=== PATIENT | female | born 1970 | race Caucasian/White ===

== ENCOUNTER 2018-08-21 11:00 | Inpatient (IN) | payer BC ==
[~2018-08-21] VITALS: Ht 157.5 cm; Wt 81.2 kg
[2018-08-21 12:00] VITALS: BP 133/67
--- NOTE | 2018-08-21 13:20 | EKG ---
[facility] [address] [place] [address] Test Date: 2018-08-21 Test Time: 13:12:12 Pat Name: INO CARVALHO Department: Room: 104 1 Gender: F Public Health Nutritionist: MANNIE : 1970 Requested By: KASSIE VILLAREAL Order Number: [id number] Reading MD: Angel Mcgovern MD Measurements Intervals [place] Rate: 76 P: 52 DE: 152 QRS: -16 QRSD: 76 T: 21 QT: 366 QTc: 415 Interpretive Statements SINUS RHYTHM Electronically Signed On 08-23-2018 11:09:45 CDT by Angel Mcgovern MD
[2018-08-21 14:26] LABS: BASO # 0.1 x10^3/uL (0.0-0.2); BASO % 1 % (0-3); EOS # 0.1 x10^3/uL (0.0-0.7); EOS % 2 % (0-3); HEMATOCRIT 42.6 % (36.0-47.0); LYMPH # 1.8 x10^3/uL (1.0-4.8); LYMPH % 23 % (24-48); MEAN CORPUSCULAR HEMOGLOBIN 27 pg (25-35); MEAN CORPUSCULAR HGB CONC 33 g/dL (31-37); MEAN CORPUSCULAR VOLUME 81 fL (79-100); MONO # 0.5 x10^3/uL (0.0-1.1); MONO % 6 % (0-9); NEUT # 5.2 x10^3uL (1.8-7.7); NEUT % 68 % (31-73); PLATELET COUNT 214 x10^3/uL (140-400); RED BLOOD COUNT 5.24 x10^6/uL (3.50-5.40); RED CELL DISTRIBUTION WIDTH 14.7 % (11.5-14.5); WHITE BLOOD COUNT 7.6 x10^3/uL (4.0-11.0)
[2018-08-21 14:27] LABS: BILIRUBIN,URINE NEGATIVE (NEG); CLARITY,URINE CLEAR; COLOR,URINE YELLOW; NITRITE,URINE NEGATIVE (NEG); PH,URINE 7.5; PROTEIN,URINE NEGATIVE (NEG-TRACE); UROBILINOGEN,URINE 0.2 mg/dL (0.2 mg/dL)
[2018-08-21 14:31] LABS: AMPHETAMINE/METHAMPHETAMINE NEG (NEG); BARBITURATES NEG (NEG); BENZODIAZEPINES NEG (NEG); CANNABINOIDS NEG (NEG); COCAINE NEG (NEG); METHADONE NEG (NEG); OPIATES NEG (NEG); PHENCYCLIDINE NEG (NEG)
[2018-08-21 14:43] LABS: ALBUMIN 3.8 g/dL (3.4-5.0); ALBUMIN/GLOBULIN RATIO 1.1 (1.0-1.7); CALCIUM 9.5 mg/dL (8.5-10.1); CREATININE 0.7 mg/dL (0.6-1.0); GFR 90.1; POTASSIUM 3.9 mmol/L (3.5-5.1); TOTAL BILIRUBIN 0.6 mg/dL (0.2-1.0); TOTAL PROTEIN 7.4 g/dL (6.4-8.2)
[2018-08-21 14:49] LABS: BACTERIA,URINE 0 /HPF (0-FEW)
[2018-08-21 14:50] LABS: SQUAMOUS EPITHELIAL CELL,UR FEW /LPF; WBC,URINE OCC /HPF (0-4)
--- NOTE | 2018-08-21 15:23 | PDOC2 ---
CARDIAC CONSULT DATE OF CONSULT Date of Consult DATE: 08/21/18 TIME: 15:22 REASON FOR CONSULT Reason for Consult: Chest pain REFERRING PHYSICIAN Referring Physician: Appl SOURCE Source: Chart review, Patient HISTORY OF PRESENT ILLNESS HISTORY OF PRESENT ILLNESS This is a pleasant 47 yo female admitted for complains of chest pain and double vision. She came from her PCP's office and told her to come to ED. Reports that Palm Monday she had 30 minutes of double vision with some MAKI while at [employer]. his good Monday she had some blurred vision episode which again lasted for about 30 minutes. Reports that she had CP sharp to left chest without diaphoresis, palpitations lasting about 1 minute longest duration but also occurred x2 more but brief. No vertigo, facial droop, dysarthria. No recent falls, injury, MVA. No hx of VTE, CAD, arrhythmias. 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 No past hx of CVA or TIA. No recent infection. PAST MEDICAL HISTORY Cardiovascular: No pertinent hx Pulmonary: No pertinent hx CENTRAL NERVOUS SYSTEM: Other (No pertinent history) GI: No pertinent hx Heme/Onc: No pertinent hx Hepatobiliary: No pertinent hx Psych: No pertinent hx Musculoskeletal: Osteoarthritis Rheumatologic: No pertinent hx Infectious disease: No pertinent hx ENT: No pertinent hx Renal/: No pertinent hx Endocrine: No pertinent hx Dermatology: No pertinent hx PAST SURGICAL HISTORY Past Surgical History: Tubal Ligation, Other (polypectomy as a child) FAMILY HISTORY Family History: Coronary Artery Disease (premature with brother in his 40s. ) SOCIAL HISTORY Smoke: No ALCOHOL: none Drugs: None Lives: with Family ALLERGIES ALLERGIES: Coded Allergies: codeine (Verified Adverse Reaction, Intermediate, nausea, 08/21/18) ROS Review of System 14 point ROS evaluated with pertinent positives noted in HPI PHYSICAL EXAM General: Alert, Oriented X3, Cooperative, No acute distress HEENT: Atraumatic, Mucous membr. moist/pink Lungs: Clear to auscultation, Normal air movement Heart: Regular rate (SR), Normal S1, Normal S2, No murmurs Abdomen: Soft, No tenderness Extremities: No cyanosis, No edema Skin: No breakdown, No significant lesion Neuro: Normal speech, Sensation intact Psych/Mental Status: Mental status NL, Mood NL MUSCULOSKELETAL: Osteoarthritic changes both hands VITALS VITALS Vital Signs Date Time Temp Pulse Resp B/P (MAP) Pulse Ox O2 Delivery O2 Flow Rate FiO2 08/21/18 12:00 97.8 74 133/67 (89) 100 97.8 LABS Lab: Laboratory Tests Test 08/21/18 14:00 08/21/18 14:10 Urine Collection Type Unknown Urine Color Yellow Urine Clarity Clear Urine pH 7.5 Urine Specific [place] <=1.005 Urine Protein Negative mg/dL (NEG-TRACE) Urine Glucose (UA) Negative mg/dL (NEG) Urine Ketones (Stick) Trace mg/dL (NEG) Urine Blood Negative (NEG) Urine Nitrite Negative (NEG) Urine Bilirubin Negative (NEG) Urine Urobilinogen Dipstick 0.2 mg/dL (0.2 mg/dL) Urine Leukocyte Esterase Negative (NEG) Urine RBC 1-2 /HPF (0-2) Urine WBC Occ /HPF (0-4) Urine Squamous Epithelial Cells Few /LPF Urine Bacteria 0 /HPF (0-FEW) Urine Opiates Screen Neg (NEG) Urine Methadone Screen Neg (NEG) Urine Barbiturates Neg (NEG) Urine Phencyclidine Screen Neg (NEG) Urine Amphetamine/Methamphetamine Neg (NEG) Urine Benzodiazepines Screen Neg (NEG) Urine Cocaine Screen Neg (NEG) Urine Cannabinoids Screen Neg (NEG) Urine Ethyl Alcohol Neg (NEG) White Blood Count 7.6 x10^3/uL (4.0-11.0) Red Blood Count 5.24 x10^6/uL (3.50-5.40) Hemoglobin 14.0 g/dL (12.0-15.5) Hematocrit 42.6 % (36.0-47.0) Mean Corpuscular Volume 81 fL (79-100) Mean Corpuscular Hemoglobin 27 pg (25-35) Mean Corpuscular Hemoglobin Concent 33 g/dL (31-37) Red Cell Distribution Width 14.7 % (11.5-14.5) Platelet Count 214 x10^3/uL (140-400) Neutrophils (%) (Auto) 68 % (31-73) Lymphocytes (%) (Auto) 23 % (24-48) Monocytes (%) (Auto) 6 % (0-9) Eosinophils (%) (Auto) 2 % (0-3) Basophils (%) (Auto) 1 % (0-3) Neutrophils # (Auto) 5.2 x10^3uL (1.8-7.7) Lymphocytes # (Auto) 1.8 x10^3/uL (1.0-4.8) Monocytes # (Auto) 0.5 x10^3/uL (0.0-1.1) Eosinophils # (Auto) 0.1 x10^3/uL (0.0-0.7) Basophils # (Auto) 0.1 x10^3/uL (0.0-0.2) Sodium Level 143 mmol/L (136-145) Potassium Level 3.9 mmol/L (3.5-5.1) Chloride Level 104 mmol/L (98-107) Carbon Dioxide Level 28 mmol/L (21-32) Anion Gap 11 (6-14) Blood Urea Nitrogen 10 mg/dL (7-20) Creatinine 0.7 mg/dL (0.6-1.0) Estimated GFR (Cockcroft-Gault) 90.1 BUN/Creatinine Ratio 14 (6-20) Glucose Level 93 mg/dL (70-99) Calcium Level 9.5 mg/dL (8.5-10.1) Total Bilirubin 0.6 mg/dL (0.2-1.0) Aspartate Amino Transf (AST/SGOT) 18 U/L (15-37) Alanine Aminotransferase (ALT/SGPT) 26 U/L (14-59) Alkaline Phosphatase 87 U/L (46-116) Total Protein 7.4 g/dL (6.4-8.2) Albumin 3.8 g/dL (3.4-5.0) Albumin/Globulin Ratio 1.1 (1.0-1.7) Vitamin B12 Level 365 pg/mL (247-911) Thyroid Stimulating Hormone (TSH) 0.503 uIU/mL (0.358-3.74) ASSESSMENT/PLAN ASSESSMENT/PLAN Atypical chest pain Diplopia Recommendations TTE lipids, trend troponin, if unremarkable then will consider for outpt stress test given her significant family hx of premature CAD Neurology consult pending. Statin per lipid level. PETER BISHOP CLAIM AUDITOR Aug 21, 2018 15:23
[2018-08-21 15:36] LABS: CHOLESTEROL/HDL RATIO 5.3
[2018-08-21 16:00] VITALS: BP 109/61
--- NOTE | 2018-08-21 16:07 | PDOC2 ---
NEUROLOGY CONSULT Date of Admission Date of Admission DATE: 08/21/18 TIME: 15:58 Reason for Consult Reason for Consult: IMPRESSION: Recurrent blurred vision. Diplopia. Headache. Chest pain. HLD. Obesity. RECOMMENDATIONS/PLAN: Brain MRI w/wo contrast. Lab: see orders. Consulted Cardiology. Treat medical diseases. HISTORY OF THE PRESENT ILLNESS: This 47-y-old female patient with symptoms of chest pain was admitted for further evaluation. She Stated she had diplopia on 08/17/18 then again today. She also has headaches several times a week but now became more frequent with blurred vision. Denied sensory or motor deficits. PAST MEDICAL HISTORY: Please see above. PAST SURGERY HISTORY: No major surgery recently. ALLERGY: Coded Allergies: codeine (Verified Adverse Reaction, Intermediate, nausea, 08/21/18) MEDICATIONS: Refer to [facility] FAMILY HISTORY: Non contributory. SOCIAL HISTORY: Lives at home. Denies current smoking, drinking, and illicit drug use. REVIEW OF SYSTEMS: Constitutional: No malnutrition, weight loss, cachexia. Head: No traumatic brain or head injury. Skin: No edema, or rash. Ear: No infection. Eyes: No vision loss or color blindness. Nose: No bleeding or purulent discharges. Hearing: No hearing decrease. Neck: No injury. Breast: No history of cancer, masses,or discharges. Cardiac: HLD. Pulmonary: No COPD. GI: No GI ulcer, GI bleeding. Urinary/genital: UTI. Endocrinologic: Obesity. Skeletomuscular: No muscular atrophy. Neurological: see HP. Psychiatric: Denies drug use/abuse. Otherwise, not [id number] review of systems. PHYSICAL EXAMINATION: General appearance is in subacute distress. HEENT: Normocephalic and nontraumatic. Eyes, nose, ears, and throat are unremarkable. Neck is supple. No lymphadenopathy. No bruits are heard over the carotid artery. No crepitus. Cardiovascular: S1, S2, regular rate and rhythm. Pulmonary: Clear to auscultation bilaterally. Abdomen: Bowel sounds are positive. Abdomen is soft, nontender, and nondis tended. Extremities: No rash, lesions, or edema. No restriction of range of motion NEUROLOGICAL EXAMINATION: Alert Oriented to time, place and person. PERRL. EOMI. CN: no focal findings. Muscle tone: within normal. Muscle strength: 5 DTR: 2 Plantar reflex: Flexorl response bilaterally Gait: not examined in bed. Sensory exam: no abnormal findings. No cerebellar signs elicited. F-T-N test accurate. Current Medications Current Medications Current Medications Atorvastatin Calcium (Lipitor) 20 mg QHS PO ; Start 08/21/18 at 21:00; Status UNV Active Scripts Active Reported No Known Medications Prior To Admisstion (Info) Each 1 Each MC 1X Allergies Allergies: Allergies Coded Allergies Type Severity Reaction Last Updated Verified codeine Adverse Reaction Intermediate nausea 08/21/18 Yes ROS Review of System The patient denies any associated fevers, chills, headache, ear pain, rhinorrhea, sore throat, stiff neck, productive cough, chest pain, shortness of breath, back or flank pain, abdominal pain, nausea, vomiting, diarrhea, constipation, dysuria, rash, numbness, weakness, tingling, incontinence, difficulty ambulating, or diaphoresis. Physical Exam Physical Exam General: Well developed, well nourished, no acute distress, well appearing HEENT: Pupils equally round and reactive to light, EOMI, no discharge, normal conjunctiva Neck: Supple, no nuchal rigidity, no JVD, trachea midline, no tenderness Cardiac: RRR, no murmurs, no gallops, no rubs Chest/Lungs: CTAB, no wheeze, no rhonchi, no crackles Abdomen: soft, non-distended, no guarding, no peritoneal signs, non-tender Back: No tenderness Extremities: no edema, pulses intact, non-tender,capillary refill <3 sec bilateral upper and lower extremities, Neuro: Alert and oriented x 4, no focal deficits, normal speech Vitals Vitals: Vital Signs Date Time Temp Pulse Resp B/P (MAP) Pulse Ox O2 Delivery O2 Flow Rate FiO2 08/21/18 12:00 97.8 74 133/67 (89) 100 97.8 Labs Labs Laboratory Tests Test 08/21/18 14:00 08/21/18 14:10 Urine Collection Type Unknown Urine Color Yellow Urine Clarity Clear Urine pH 7.5 Urine Specific [place] <=1.005 Urine Protein Negative mg/dL (NEG-TRACE) Urine Glucose (UA) Negative mg/dL (NEG) Urine Ketones (Stick) Trace mg/dL (NEG) Urine Blood Negative (NEG) Urine Nitrite Negative (NEG) Urine Bilirubin Negative (NEG) Urine Urobilinogen Dipstick 0.2 mg/dL (0.2 mg/dL) Urine Leukocyte Esterase Negative (NEG) Urine RBC 1-2 /HPF (0-2) Urine WBC Occ /HPF (0-4) Urine Squamous Epithelial Cells Few /LPF Urine Bacteria 0 /HPF (0-FEW) Urine Opiates Screen Neg (NEG) Urine Methadone Screen Neg (NEG) Urine Barbiturates Neg (NEG) Urine Phencyclidine Screen Neg (NEG) Urine Amphetamine/Methamphetamine Neg (NEG) Urine Benzodiazepines Screen Neg (NEG) Urine Cocaine Screen Neg (NEG) Urine Cannabinoids Screen Neg (NEG) Urine Ethyl Alcohol Neg (NEG) White Blood Count 7.6 x10^3/uL (4.0-11.0) Red Blood Count 5.24 x10^6/uL (3.50-5.40) Hemoglobin 14.0 g/dL (12.0-15.5) Hematocrit 42.6 % (36.0-47.0) Mean Corpuscular Volume 81 fL (79-100) Mean Corpuscular Hemoglobin 27 pg (25-35) Mean Corpuscular Hemoglobin Concent 33 g/dL (31-37) Red Cell Distribution Width 14.7 % (11.5-14.5) Platelet Count 214 x10^3/uL (140-400) Neutrophils (%) (Auto) 68 % (31-73) Lymphocytes (%) (Auto) 23 % (24-48) Monocytes (%) (Auto) 6 % (0-9) Eosinophils (%) (Auto) 2 % (0-3) Basophils (%) (Auto) 1 % (0-3) Neutrophils # (Auto) 5.2 x10^3uL (1.8-7.7) Lymphocytes # (Auto) 1.8 x10^3/uL (1.0-4.8) Monocytes # (Auto) 0.5 x10^3/uL (0.0-1.1) Eosinophils # (Auto) 0.1 x10^3/uL (0.0-0.7) Basophils # (Auto) 0.1 x10^3/uL (0.0-0.2) Erythrocyte Sedimentation Rate 32 (0-25) Sodium Level 143 mmol/L (136-145) Potassium Level 3.9 mmol/L (3.5-5.1) Chloride Level 104 mmol/L (98-107) Carbon Dioxide Level 28 mmol/L (21-32) Anion Gap 11 (6-14) Blood Urea Nitrogen 10 mg/dL (7-20) Creatinine 0.7 mg/dL (0.6-1.0) Estimated GFR (Cockcroft-Gault) 90.1 BUN/Creatinine Ratio 14 (6-20) Glucose Level 93 mg/dL (70-99) Calcium Level 9.5 mg/dL (8.5-10.1) Total Bilirubin 0.6 mg/dL (0.2-1.0) Aspartate Amino Transf (AST/SGOT) 18 U/L (15-37) Alanine Aminotransferase (ALT/SGPT) 26 U/L (14-59) Alkaline Phosphatase 87 U/L (46-116) Total Protein 7.4 g/dL (6.4-8.2) Albumin 3.8 g/dL (3.4-5.0) Albumin/Globulin Ratio 1.1 (1.0-1.7) Triglycerides Level 164 mg/dL (0-150) Cholesterol Level 240 mg/dL (0-200) LDL Cholesterol, Calculated 162 mg/dL (0-100) VLDL Cholesterol, Calculated 33 mg/dL (0-40) Non-HDL Cholesterol Calculated 195 mg/dL (0-129) HDL Cholesterol 45 mg/dL (40-60) Cholesterol/HDL Ratio 5.3 Vitamin B12 Level 365 pg/mL (247-911) Thyroid Stimulating Hormone (TSH) 0.503 uIU/mL (0.358-3.74) Laboratory Tests Test 08/21/18 14:00 08/21/18 14:10 Urine Collection Type Unknown Urine Color Yellow Urine Clarity Clear Urine pH 7.5 Urine Specific [place] <=1.005 Urine Protein Negative mg/dL (NEG-TRACE) Urine Glucose (UA) Negative mg/dL (NEG) Urine Ketones (Stick) Trace mg/dL (NEG) Urine Blood Negative (NEG) Urine Nitrite Negative (NEG) Urine Bilirubin Negative (NEG) Urine Urobilinogen Dipstick 0.2 mg/dL (0.2 mg/dL) Urine Leukocyte Esterase Negative (NEG) Urine RBC 1-2 /HPF (0-2) Urine WBC Occ /HPF (0-4) Urine Squamous Epithelial Cells Few /LPF Urine Bacteria 0 /HPF (0-FEW) Urine Opiates Screen Neg (NEG) Urine Methadone Screen Neg (NEG) Urine Barbiturates Neg (NEG) Urine Phencyclidine Screen Neg (NEG) Urine Amphetamine/Methamphetamine Neg (NEG) Urine Benzodiazepines Screen Neg (NEG) Urine Cocaine Screen Neg (NEG) Urine Cannabinoids Screen Neg (NEG) Urine Ethyl Alcohol Neg (NEG) White Blood Count 7.6 x10^3/uL (4.0-11.0) Red Blood Count 5.24 x10^6/uL (3.50-5.40) Hemoglobin 14.0 g/dL (12.0-15.5) Hematocrit 42.6 % (36.0-47.0) Mean Corpuscular Volume 81 fL (79-100) Mean Corpuscular Hemoglobin 27 pg (25-35) Mean Corpuscular Hemoglobin Concent 33 g/dL (31-37) Red Cell Distribution Width 14.7 % (11.5-14.5) Platelet Count 214 x10^3/uL (140-400) Neutrophils (%) (Auto) 68 % (31-73) Lymphocytes (%) (Auto) 23 % (24-48) Monocytes (%) (Auto) 6 % (0-9) Eosinophils (%) (Auto) 2 % (0-3) Basophils (%) (Auto) 1 % (0-3) Neutrophils # (Auto) 5.2 x10^3uL (1.8-7.7) Lymphocytes # (Auto) 1.8 x10^3/uL (1.0-4.8) Monocytes # (Auto) 0.5 x10^3/uL (0.0-1.1) Eosinophils # (Auto) 0.1 x10^3/uL (0.0-0.7) Basophils # (Auto) 0.1 x10^3/uL (0.0-0.2) Erythrocyte Sedimentation Rate 32 (0-25) Sodium Level 143 mmol/L (136-145) Potassium Level 3.9 mmol/L (3.5-5.1) Chloride Level 104 mmol/L (98-107) Carbon Dioxide Level 28 mmol/L (21-32) Anion Gap 11 (6-14) Blood Urea Nitrogen 10 mg/dL (7-20) Creatinine 0.7 mg/dL (0.6-1.0) Estimated GFR (Cockcroft-Gault) 90.1 BUN/Creatinine Ratio 14 (6-20) Glucose Level 93 mg/dL (70-99) Calcium Level 9.5 mg/dL (8.5-10.1) Total Bilirubin 0.6 mg/dL (0.2-1.0) Aspartate Amino Transf (AST/SGOT) 18 U/L (15-37) Alanine Aminotransferase (ALT/SGPT) 26 U/L (14-59) Alkaline Phosphatase 87 U/L (46-116) Total Protein 7.4 g/dL (6.4-8.2) Albumin 3.8 g/dL (3.4-5.0) Albumin/Globulin Ratio 1.1 (1.0-1.7) Triglycerides Level 164 mg/dL (0-150) Cholesterol Level 240 mg/dL (0-200) LDL Cholesterol, Calculated 162 mg/dL (0-100) VLDL Cholesterol, Calculated 33 mg/dL (0-40) Non-HDL Cholesterol Calculated 195 mg/dL (0-129) HDL Cholesterol 45 mg/dL (40-60) Cholesterol/HDL Ratio 5.3 Vitamin B12 Level 365 pg/mL (247-911) Thyroid Stimulating Hormone (TSH) 0.503 uIU/mL (0.358-3.74) MASON YANG MD Aug 21, 2018 16:07
[2018-08-21] MEDS ORDERED: GADOBUTROL 7.5 MMOL/7.5 ML VIAL IV ONE (16:15)
--- NOTE | 2018-08-21 17:04 | RAD ---
MRI of the Brain without and with Contrast 08/21/2018 Clinical History: Blurred vision. Diplopia. Headaches. Technique: Unenhanced T1-weighted sagittal and axial and FLAIR, T2-weighted, gradient echo and diffusion-weighted axial images of the brain were obtained. After the intravenous administration of 7.5 cc of Gadavist, enhanced T1-weighted axial and coronal images of the brain were obtained. Findings: The ventricles and sulci are within normal limits in size and configuration. No area of significant abnormal signal intensity is seen involving the brain parenchyma. Incidental note is made of a 5 mm venous angioma involving the right parietal lobe. No abnormal area of significant contrast enhancement is seen. No extra-axial fluid collection is noted. There is no MRI evidence of acute ischemia/infarction. The orbits are within normal limits. Mild mucosal thickening is involving both maxillary sinuses and scattered throughout the ethmoid air cells bilaterally. Mild to moderate mucosal thickening is seen involving the sphenoid sinus. Normal flow voids are seen within the major vascular structures surrounding the brain parenchyma. Impression: 1. Negative MRI of the brain. 2. Mild paranasal sinus disease. Electronically signed by: Mason Ontiveros MD (08/21/2018 5:01 PM) [id number]
[2018-08-21 18:22] VITALS: BP 129/74
[2018-08-21 19:35] VITALS: BP 116/71
[2018-08-21] MEDS ORDERED: ACETAMINOPHEN 325 MG TABLET. PO PRN (19:45)
[2018-08-21] MEDS ORDERED: ATORVASTATIN CALCIUM 20 MG TABLET PO SCH (21:00)
[2018-08-21 23:15] VITALS: BP 108/63
[2018-08-22 03:30] VITALS: BP 117/71
[2018-08-22 07:29] VITALS: BP 122/72
[2018-08-22] MEDS ORDERED: IBUPROFEN 200 MG TABLET. PO PRN (08:30)
[2018-08-22 09:01] LABS: CALCIUM 9.4 mg/dL (8.5-10.1); CREATININE 0.6 mg/dL (0.6-1.0); GFR 107.6; POTASSIUM 4.2 mmol/L (3.5-5.1)
[2018-08-22 09:05] LABS: CHOLESTEROL/HDL RATIO 5.4
--- NOTE | 2018-08-22 09:17 | HP ---
ADMIT DATE: 08/21/2018 CHIEF COMPLAINT AND HISTORY OF PRESENT ILLNESS: This 47-year-old white female seen in the office with chest pain, which has been happening over the last week or so. She describes it is in her armpit and then across into her chest. She had had no associated symptoms with this. It was more sharp in nature. They lasted up to a minute at a time. She had also been having some spells where she would get double vision of the vertical nature with some headache and vertigo associated with the same. Because of all these symptoms, the chest pain as well as neuro symptoms she was admitted to expedite workup. PAST MEDICAL HISTORY: Essentially unremarkable. MEDICATIONS: Brought with the patient, listed on the computer, have been addressed. ALLERGIES: SHE IS ALLERGIC TO CODEINE. SOCIAL HISTORY: Noncontributory. FAMILY HISTORY: Highly positive for coronary artery disease of a premature nature. PHYSICAL EXAMINATION: GENERAL: She is well-developed, well-nourished white female, in no acute distress. VITAL SIGNS: Stable. She is afebrile. HEAD, EYES, EARS, NOSE AND THROAT: Unremarkable. NECK: Supple, without adenopathy or thyromegaly. CHEST: Clear to auscultation and percussion. HEART: Regular rate and rhythm without S3, S4 or murmur. ABDOMEN: Soft, nontender, without hepatosplenomegaly or masses. EXTREMITIES: Without cyanosis, clubbing, edema. NEUROLOGIC: Nonfocal. IMPRESSION: 1. Chest pain. 2. Diplopia with vertigo. PLAN: The patient has been admitted. Troponin will be checked. Neuro and Cardiology have been consulted. The patient will be monitored, managed and treated appropriately. KASSIE VILLAREAL MD DR: AFIA/tangela JOB#: [id number] / [id number]
--- NOTE | 2018-08-22 10:16 | CARD ---
MR#: [id number] Date of Study: 08/22/2018 Ordering Physician: PETER BISHOP, Referring Physician: KASSIE VILLAREAL Tech: Danii Sevilla NITO APPROVED REPORT EXAM: Two-dimensional and M-mode echocardiogram with Doppler and color Doppler. Other Information Quality : Good INDICATION Chest Pain 2D DIMENSIONS Left Atrium(2D)3.1 (1.6-4.0cm)IVSd0.6 (0.7-1.1cm) Aortic Root(2D)2.9 (2.0-3.7cm)LVDd4.5 (3.9-5.9cm) LVOT Diameter2.5 (1.8-2.4cm)PWd0.8 (0.7-1.1cm) LVDs3.4 (2.5-4.0cm)FS (%) 25.3 % SV46.4 mlLVEF(%)55.0 (>50%) Aortic Valve AoV Peak Andrew.101.5cm/sAoV VTI13.8cm AO Peak GR.4.1mmHgLVOT Peak Andrew.103.4cm/s AO Mean GR.2mmHgAVA (VMAX)4.82cm2 NICK (VTI)5.80cm2 Mitral Valve MV E Sjzforfi51.4cm/sMV DECEL [id number] MV A Pvjtgcko453.4cm/sE/A Ratio0.7 Tricuspid Valve TR P. Ykbgxjio989ks/sRAP AGLVHOXT2mjPr TR Peak Gr.32hyKkOQZV51xxFx LEFT VENTRICLE The left ventricle is normal size. There is normal left ventricular wall thickness. The left ventricu lar systolic function is normal. The Ejection Fraction is 60%. There is normal LV segmental wall daren on. Transmitral Doppler flow pattern is Grade I-abnormal relaxation pattern. RIGHT VENTRICLE The right ventricle is normal size. The right ventricular systolic function is normal. ATRIA The left atrium size is normal. The right atrium size is normal. The interatrial septum is intact wit h no evidence for an atrial septal defect or patent foramen ovale as noted on 2-D or Doppler imaging. AORTIC VALVE The aortic valve is calcified but opens well. Doppler and Color Flow revealed no significant aortic r egurgitation. There is no significant aortic valvular stenosis. MITRAL VALVE The mitral valve is calcified but opens well. There is no evidence of mitral valve prolapse. There is no mitral valve stenosis. Doppler and Color Flow revealed no mitral valve regurgitation noted. TRICUSPID VALVE The tricuspid valve is normal in structure and function. Doppler and Color Flow revealed trace tricus pid regurgitation. The PA pressure was estimated at 20 mmHg. There is no tricuspid valve stenosis. PULMONIC VALVE The pulmonary valve is normal in structure and function. Doppler and Color Flow revealed trace to mil d pulmonic valvular regurgitation. There is no pulmonic valvular stenosis. GREAT VESSELS The aortic root is normal in size. The ascending aorta is normal in size. The IVC was not visualized. PERICARDIAL EFFUSION There is no evidence of significant pericardial effusion. Critical Notification Critical Value: No <Conclusion> The left ventricular systolic function is normal. The Ejection Fraction is 60%. There is normal LV segmental wall motion. Transmitral Doppler flow pattern is Grade I-abnormal relaxation pattern. Doppler and Color Flow revealed trace tricuspid regurgitation. The PA pressure was estimated at 20 mmHg. There is no evidence of significant pericardial effusion. Signed by : Ronnie Perkins, Electronically Approved : 08/22/2018 10:15:47
[2018-08-22 11:02] VITALS: BP 108/86
--- NOTE | 2018-08-22 11:53 | PDOC ---
CARDIO Progress Notes Date and Time Date of Service 08/22/18 Time of Evaluation 1110 Subjective Subjective: No Chest Pain, No shortness of breath, No Palpitations Vitals Vitals Vital Signs Date Time Temp Pulse Resp B/P (MAP) Pulse Ox O2 Delivery O2 Flow Rate FiO2 08/22/18 11:02 97.4 80 16 108/86 (93) 96 Room Air 97.4 Weight Weight [ ] Input and Output Intake and Output Intake and Output 08/22/18 07:00 Intake Total 480 ml Balance 480 ml Intake Oral 480 ml # Voids 6 Laboratory Labs Laboratory Tests Test 08/21/18 12:02 08/21/18 14:00 08/21/18 14:10 08/22/18 08:16 Nasal Screen MRSA (PCR) Negative (Negative) Urine Collection Type Unknown Urine Color Yellow Urine Clarity Clear Urine pH 7.5 Urine Specific [place] <=1.005 Urine Protein Negative mg/dL (NEG-TRACE) Urine Glucose (UA) Negative mg/dL (NEG) Urine Ketones (Stick) Trace mg/dL (NEG) Urine Blood Negative (NEG) Urine Nitrite Negative (NEG) Urine Bilirubin Negative (NEG) Urine Urobilinogen Dipstick 0.2 mg/dL (0.2 mg/dL) Urine Leukocyte Esterase Negative (NEG) Urine RBC 1-2 /HPF (0-2) Urine WBC Occ /HPF (0-4) Urine Squamous Epithelial Cells Few /LPF Urine Bacteria 0 /HPF (0-FEW) Urine Opiates Screen Neg (NEG) Urine Methadone Screen Neg (NEG) Urine Barbiturates Neg (NEG) Urine Phencyclidine Screen Neg (NEG) Urine Amphetamine/Methamphetamine Neg (NEG) Urine Benzodiazepines Screen Neg (NEG) Urine Cocaine Screen Neg (NEG) Urine Cannabinoids Screen Neg (NEG) Urine Ethyl Alcohol Neg (NEG) White Blood Count 7.6 x10^3/uL (4.0-11.0) Red Blood Count 5.24 x10^6/uL (3.50-5.40) Hemoglobin 14.0 g/dL (12.0-15.5) Hematocrit 42.6 % (36.0-47.0) Mean Corpuscular Volume 81 fL (79-100) Mean Corpuscular Hemoglobin 27 pg (25-35) Mean Corpuscular Hemoglobin Concent 33 g/dL (31-37) Red Cell Distribution Width 14.7 % (11.5-14.5) Platelet Count 214 x10^3/uL (140-400) Neutrophils (%) (Auto) 68 % (31-73) Lymphocytes (%) (Auto) 23 % (24-48) Monocytes (%) (Auto) 6 % (0-9) Eosinophils (%) (Auto) 2 % (0-3) Basophils (%) (Auto) 1 % (0-3) Neutrophils # (Auto) 5.2 x10^3uL (1.8-7.7) Lymphocytes # (Auto) 1.8 x10^3/uL (1.0-4.8) Monocytes # (Auto) 0.5 x10^3/uL (0.0-1.1) Eosinophils # (Auto) 0.1 x10^3/uL (0.0-0.7) Basophils # (Auto) 0.1 x10^3/uL (0.0-0.2) Erythrocyte Sedimentation Rate 32 (0-25) Sodium Level 143 mmol/L (136-145) 141 mmol/L (136-145) Potassium Level 3.9 mmol/L (3.5-5.1) 4.2 mmol/L (3.5-5.1) Chloride Level 104 mmol/L (98-107) 104 mmol/L (98-107) Carbon Dioxide Level 28 mmol/L (21-32) 28 mmol/L (21-32) Anion Gap 11 (6-14) 9 (6-14) Blood Urea Nitrogen 10 mg/dL (7-20) 11 mg/dL (7-20) Creatinine 0.7 mg/dL (0.6-1.0) 0.6 mg/dL (0.6-1.0) Estimated GFR (Cockcroft-Gault) 90.1 107.6 BUN/Creatinine Ratio 14 (6-20) Glucose Level 93 mg/dL (70-99) 118 mg/dL (70-99) Calcium Level 9.5 mg/dL (8.5-10.1) 9.4 mg/dL (8.5-10.1) Total Bilirubin 0.6 mg/dL (0.2-1.0) Aspartate Amino Transf (AST/SGOT) 18 U/L (15-37) Alanine Aminotransferase (ALT/SGPT) 26 U/L (14-59) Alkaline Phosphatase 87 U/L (46-116) Troponin I Quantitative < 0.017 ng/mL (0.000-0.055) < 0.017 ng/mL (0.000-0.055) Total Protein 7.4 g/dL (6.4-8.2) Albumin 3.8 g/dL (3.4-5.0) Albumin/Globulin Ratio 1.1 (1.0-1.7) Triglycerides Level 164 mg/dL (0-150) 109 mg/dL (0-150) Cholesterol Level 240 mg/dL (0-200) 223 mg/dL (0-200) LDL Cholesterol, Calculated 162 mg/dL (0-100) 160 mg/dL (0-100) VLDL Cholesterol, Calculated 33 mg/dL (0-40) 22 mg/dL (0-40) Non-HDL Cholesterol Calculated 195 mg/dL (0-129) 182 mg/dL (0-129) HDL Cholesterol 45 mg/dL (40-60) 41 mg/dL (40-60) Cholesterol/HDL Ratio 5.3 5.4 Vitamin B12 Level 365 pg/mL (247-911) Thyroid Stimulating Hormone (TSH) 0.503 uIU/mL (0.358-3.74) Physical Exam HEENT: Neck Supple W Full Motion Chest: Symmetric LUNGS: Clear to Auscultation Heart: S1S2, RRR Abdomen: Soft N/T Extremities: No Edema Neurology: alert, oriented, follow commands Assessment Assessment 1. Atypical chest pain. AMI ruled out. Echo with preserved LV systolic function 2. Hyperlipidemia; LDL 160 Recommendations Agree with statin therapy. Risk stratification modification Consider outpatient ischemic evaluation. Followup with Dr. Kennedy in 4 weeks as scheduled. CHRISTINA MCKEON APRN Aug 22, 2018 11:53
--- NOTE | 2018-08-22 13:00 | PDOC ---
PROGRESS NOTES Assessment Assessment Recurrent blurred vision. Diplopia. Headache. Chest pain. HLD. Obesity. No evidence of acute CVA this time. RECOMMENDATIONS/PLAN: Treat medical diseases. FU with PCP. Weight reduction. Discussed levi her and parents at bedside on 08/22/18. HISTORY OF THE PRESENT ILLNESS: This 47-y-old female patient with symptoms of chest pain was admitted for further evaluation. She Stated she had diplopia on 08/17/18 then again today. She also has headaches several times a week but now became more frequent with blurr ed vision. Denied sensory or motor deficits. PAST MEDICAL HISTORY: Please see above. PAST SURGERY HISTORY: No major surgery recently. ALLERGY: Coded Allergies: codeine (Verified Adverse Reaction, Intermediate, nausea, 08/21/18) MEDICATIONS: Refer to [facility] FAMILY HISTORY: Non contributory. SOCIAL HISTORY: Lives at home. Denies current smoking, drinking, and illicit drug use. REVIEW OF SYSTEMS: Constitutional: No malnutrition, weight loss, cachexia. Head: No traumatic brain or head injury. Skin: No edema, or rash. Ear: No infection. Eyes: No vision loss or color blindness. Nose: No bleeding or purulent discharges. Hearing: No hearing decrease. Neck: No injury. Breast: No history of cancer, masses,or discharges. Cardiac: HLD. Pulmonary: No COPD. GI: No GI ulcer, GI bleeding. Urinary/genital: UTI. Endocrinologic: Obesity. Skeletomuscular: No muscular atrophy. Neurological: see HP. Psychiatric: Denies drug use/abuse. Otherwise, not [id number] review of systems. PHYSICAL EXAMINATION: General appearance is in subacute distress. HEENT: Normocephalic and nontraumatic. Eyes, nose, ears, and throat are unremarkable. Neck is supple. No lymphadenopathy. No bruits are heard over the carotid artery. No crepitus. Cardiovascular: S1, S2, regular rate and rhythm. Pulmonary: Clear to auscultation bilaterally. Abdomen: Bowel sounds are positive. Abdomen is soft, nontender, and nondistended. Extremities: No rash, lesions, or edema. No restriction of range of motion NEUROLOGICAL EXAMINATION: Alert Oriented to time, place and person. PERRL. EOMI. CN: no focal findings. Muscle tone: within normal. Muscle strength: 5 DTR: 2 Plantar reflex: Flexorl response bilaterally Gait: not examined in bed. Sensory exam: no abnormal findings. No cerebellar signs elicited. F-T-N test accurate. Objective Objective Vital Signs Date Time Temp Pulse Resp B/P (MAP) Pulse Ox O2 Delivery O2 Flow Rate FiO2 08/22/18 11:02 97.4 80 16 108/86 (93) 96 Room Air 97.4 Intake and Output 08/22/18 07:00 Intake Total 480 ml Balance 480 ml Intake Oral 480 ml # Voids 6 Vitals Signs Vitals VS - Last 72 Hours, by Label Date Time Temp Pulse Resp B/P (MAP) Pulse Ox O2 Delivery O2 Flow Rate FiO2 08/22/18 11:02 97.4 80 16 108/86 (93) 96 Room Air 97.4 08/22/18 07:29 97.6 86 16 122/72 (89) 97 Room Air 97.6 08/22/18 03:30 97.7 86 18 117/71 (86) 94 Room Air 97.7 08/21/18 23:15 97.8 100 18 108/63 (78) 94 Room Air 97.8 08/21/18 19:35 98.0 86 18 116/71 (86) 92 Room Air 98.0 08/21/18 18:22 98.0 107 18 129/74 (92) 94 Room Air 98.0 08/21/18 16:00 97.3 73 109/61 (77) 100 97.3 08/21/18 12:00 97.8 74 133/67 (89) 100 97.8 Laboratory Laboratory Laboratory Tests Test 08/21/18 14:00 08/21/18 14:10 08/22/18 08:16 Urine Collection Type Unknown Urine Color Yellow Urine Clarity Clear Urine pH 7.5 Urine Specific [place] <=1.005 Urine Protein Negative mg/dL (NEG-TRACE) Urine Glucose (UA) Negative mg/dL (NEG) Urine Ketones (Stick) Trace mg/dL (NEG) Urine Blood Negative (NEG) Urine Nitrite Negative (NEG) Urine Bilirubin Negative (NEG) Urine Urobilinogen Dipstick 0.2 mg/dL (0.2 mg/dL) Urine Leukocyte Esterase Negative (NEG) Urine RBC 1-2 /HPF (0-2) Urine WBC Occ /HPF (0-4) Urine Squamous Epithelial Cells Few /LPF Urine Bacteria 0 /HPF (0-FEW) Urine Opiates Screen Neg (NEG) Urine Methadone Screen Neg (NEG) Urine Barbiturates Neg (NEG) Urine Phencyclidine Screen Neg (NEG) Urine Amphetamine/Methamphetamine Neg (NEG) Urine Benzodiazepines Screen Neg (NEG) Urine Cocaine Screen Neg (NEG) Urine Cannabinoids Screen Neg (NEG) Urine Ethyl Alcohol Neg (NEG) White Blood Count 7.6 x10^3/uL (4.0-11.0) Red Blood Count 5.24 x10^6/uL (3.50-5.40) Hemoglobin 14.0 g/dL (12.0-15.5) Hematocrit 42.6 % (36.0-47.0) Mean Corpuscular Volume 81 fL (79-100) Mean Corpuscular Hemoglobin 27 pg (25-35) Mean Corpuscular Hemoglobin Concent 33 g/dL (31-37) Red Cell Distribution Width 14.7 % (11.5-14.5) Platelet Count 214 x10^3/uL (140-400) Neutrophils (%) (Auto) 68 % (31-73) Lymphocytes (%) (Auto) 23 % (24-48) Monocytes (%) (Auto) 6 % (0-9) Eosinophils (%) (Auto) 2 % (0-3) Basophils (%) (Auto) 1 % (0-3) Neutrophils # (Auto) 5.2 x10^3uL (1.8-7.7) Lymphocytes # (Auto) 1.8 x10^3/uL (1.0-4.8) Monocytes # (Auto) 0.5 x10^3/uL (0.0-1.1) Eosinophils # (Auto) 0.1 x10^3/uL (0.0-0.7) Basophils # (Auto) 0.1 x10^3/uL (0.0-0.2) Erythrocyte Sedimentation Rate 32 (0-25) Sodium Level 143 mmol/L (136-145) 141 mmol/L (136-145) Potassium Level 3.9 mmol/L (3.5-5.1) 4.2 mmol/L (3.5-5.1) Chloride Level 104 mmol/L (98-107) 104 mmol/L (98-107) Carbon Dioxide Level 28 mmol/L (21-32) 28 mmol/L (21-32) Anion Gap 11 (6-14) 9 (6-14) Blood Urea Nitrogen 10 mg/dL (7-20) 11 mg/dL (7-20) Creatinine 0.7 mg/dL (0.6-1.0) 0.6 mg/dL (0.6-1.0) Estimated GFR (Cockcroft-Gault) 90.1 107.6 BUN/Creatinine Ratio 14 (6-20) Glucose Level 93 mg/dL (70-99) 118 mg/dL (70-99) Calcium Level 9.5 mg/dL (8.5-10.1) 9.4 mg/dL (8.5-10.1) Total Bilirubin 0.6 mg/dL (0.2-1.0) Aspartate Amino Transf (AST/SGOT) 18 U/L (15-37) Alanine Aminotransferase (ALT/SGPT) 26 U/L (14-59) Alkaline Phosphatase 87 U/L (46-116) Troponin I Quantitative < 0.017 ng/mL (0.000-0.055) < 0.017 ng/mL (0.000-0.055) Total Protein 7.4 g/dL (6.4-8.2) Albumin 3.8 g/dL (3.4-5.0) Albumin/Globulin Ratio 1.1 (1.0-1.7) Triglycerides Level 164 mg/dL (0-150) 109 mg/dL (0-150) Cholesterol Level 240 mg/dL (0-200) 223 mg/dL (0-200) LDL Cholesterol, Calculated 162 mg/dL (0-100) 160 mg/dL (0-100) VLDL Cholesterol, Calculated 33 mg/dL (0-40) 22 mg/dL (0-40) Non-HDL Cholesterol Calculated 195 mg/dL (0-129) 182 mg/dL (0-129) HDL Cholesterol 45 mg/dL (40-60) 41 mg/dL (40-60) Cholesterol/HDL Ratio 5.3 5.4 Vitamin B12 Level 365 pg/mL (247-911) Thyroid Stimulating Hormone (TSH) 0.503 uIU/mL (0.358-3.74) Medication Medications Current Medications Acetaminophen (Tylenol) 650 mg PRN Q6HRS PRN PO HEADACHE Last administered on 08/21/18at 19:55; Start 4/23/19 at 19:45 Atorvastatin Calcium (Lipitor) 20 mg QHS PO Last administered on 08/21/18at 19:55; Start 08/21/18 at 21:00 Gadobutrol (Gadavist) 7.5 mmol 1X ONCE IV Last administered on 08/21/18at 16:34; Start 08/21/18 at 16:15; Stop 08/21/18 at 16:16; Status DC Ibuprofen (Motrin) 600 mg PRN Q6HRS PRN PO INFLAMMATION Last administered on 08/22/18at 09:22; Start 08/22/18 at 08:30 Comment Review of Relevant I have reviewed the following items jeison (where applicable) has been applied. MASON YNAG MD Aug 22, 2018 13:00
[2018-08-22] MEDS ORDERED: ATOR20TA PO (13:26)
--- NOTE | 2018-08-22 13:28 | NUR ---
SS following for discharge planning. SS reviewed pt chart. Pt is from home with spouse and is currently on room air. Discharge order on the chart for home with self care.
--- NOTE | 2018-08-22 13:30 | NUR ---
Spoke to Dr. Quintana. Pt okay to discharge from Neurology standpoint.
--- NOTE | 2018-08-22 14:03 | PN ---
DATE: 08/22/2018 LOCATION: Room 208. SUBJECTIVE: The patient is awake, alert and has no current chest pain. Had some more double vision yesterday, which she describes as vertical one image on top of the other and has had some ongoing, still some mild dizziness. OBJECTIVE: Vital signs were stable. She is afebrile. LABORATORY DATA: Troponin has been negative. Cardiology is ordering an echo today with possible outpatient stress test. Neurology ordered a brain MRI with and without contrast, which was negative, with some mild current paranasal sinus disease. Laboratories included sed rate of 32. Lipids were quite high with an LDL of 162 and this will be addressed. Toxicology screen was done for some reason and is negative. Urine is negative. Nasal screen for MRSA is negative. IMPRESSION: 1. Chest pain, likely noncardiac. 2. Vertigo and diplopia, still undefined, but Neurology following. PLAN: Await echo today. Await final thoughts from Neuro and Cardiology, with possible discharge later today with further workup as an outpatient is anything sinister has been ruled out. KASSIE VILLAREAL MD DR: AFIA/tangela JOB#: [id number] / [id number]
--- NOTE | 2018-08-22 14:45 | NUR ---
Discharge Note: [facility] Discharge instructions and discharge home medications reviewed with Patient and a copy given. All questions have been answered and understanding verbalized. Follow up appointment information and prescription given to patient. The following instructions and handouts were given: Chest pain, Atorvastatin medication, Hypercholesterolemia Discontinued lines and drains: Peripheral IV intact. Patient discharged to Home or Self Care with Spouse via Ambulated
== END 2018-08-22 14:45 | disposition home or self-care (01) | DRG 123 ==
LOC: 1 WEST ICU 11:40 → 2 NORTH 18:20
PROVIDERS: ADMIT Family Medicine; ATTEND Family Medicine
DX: H53.2 Diplopia (principal); R07.89 Other chest pain; E66.9 Obesity, unspecified; E78.5 Hyperlipidemia, unspecified; M19.90 Unspecified osteoarthritis, unspecified site; R42 Dizziness and giddiness; Z82.49 Family history of ischemic heart disease and other diseases of the circulatory system; Z68.32 Body mass index [BMI] 32.0-32.9, adult; Z88.5 Allergy status to narcotic agent
CPT/HCPCS: 36415; 70553; 80048; 80053; 80061; 80307; 81001; 82607; 84443; 84484; 85025; 85651; 87641; 93005; 93306; A9585

== ENCOUNTER → 2018-10-09 | Outpatient (CLI) | payer BC ==
[~2018-10-09] MED LIST: ATOR20TA PO; REGADENOSON 0.4 MG/5 ML DISP.SYRIN. IV ONE
--- NOTE | 2018-10-09 11:47 | RAD ---
MR#: [id number] Date of Study: 10/09/2018 Ordering Physician: TAD PIKE, Referring Physician: CARMENZA HIGH Tech: RT Rachna VargasR) (N) APPROVED REPORT Test Type: Pharmacological Stress Nurse/Tech: Sherri Fuentes RN Test Indications: CP Cardiac History: Family history Medications: See Electronic Medical Record Medical History: See Electronic Medical Record Resting ECG: SR, slight <0.[address] elevation on lead I, II, Resting Heart Rate: 64 bpm Resting Blood Pressure: 106/62mmHg Pretest Chest Pain: None Nurse/Tech Notes S1S2, Clear LS Consent: The procedure was explained to the patient in lay terms. Informed consent was witnessed. Dmitry eout was entered into [employer]. History and Stress Test performed by Sherri Fuentes RN Pharm. Details Pharmacologic stress testing was performed using 0.4mg per 5ml of regadenoson given intravenously ove r 7-10 seconds. Stress Symptoms Dyspnea,Flushing Chest pain atypical of angina occurred (Severity , min duration). POST EXERCISE Reason for Termination: Infusion complete Max HR: 112 bpm Max Blood Pressure: 120/66mmHg Chest Pain: Yes. Sharp, no radiation, last 1 min Angina index: 4 Arrhythmia: No. ST Change: No. same as resting EKG INTERPRETATION Stress EKG Conclusion: Baseline EKG showed sinus rhythm. No ischemic changes at peak stress. No arr hythmias. Imaging Protocol IMAGE PROTOCOL: Rest Tc-99m/stress Tc-99m 1 day Rest: Stress: Viability: Radiopharm.Tc99m [id number] Sestamibi [id number] 33mCi Duration 13min. 13min. Img Date 10/09/2018 10/09/2018 Inj-Img [id number]. 60min. Rest Admin Site:IV - Left AntecubitalAdministrator:RT Sam (R)(N) Stress Admin Site: IV - Left AntecubitalAdministrator: ADDIE Tobar STRESS DATA End Diast. Vol.69.0mlLVEDV index BSA38.0ml End Syst. Vol.20.0mlLVESV index BSA11.0ml Myocardial Rpyc709.0gEject. Hgbfgyqq59.0% Stress Scores Regional WT0.00Summed WT1.00 Regional WM0.00Summed WM4.00 Study quality was good. Left Ventricular size was Normal at Rest and Stress. Lung uptake was . Left Ventricular ejection fraction is 71%. The rest and stress images show normal perfusion, normal contraction and thickening. LV Perf. Quant 17 Seg. SSS0.00 17 Seg. SRS0.00 17 Seg. SDS0.00 Stress Defect Extent (% LAD)0.00Rest Defect Extent (% LAD)0.00Rev. Defect Extent (% LAD)0.00 Stress Defect Extent (% LCX) 0.00Rest Defect Extent (% LCX)0.00Rev. Defect Extent (% LCX)0.00 Stress Defect Extent (% RCA)0.00Rest Defect Extent (% RCA)0.00Rev. Defect Extent (% RCA)0.00 Stress Defect Extent (% ALFREDO)0.00Rest Defect Extent (% ALFREDO)0.40Rev. Defect Extent (% ALFREDO)0.00 Conclusion 1. Regadenoson cardioisotope stress test did not show any evidence of ischemia or infarct. 2. Normal left ventricular systolic function with ejection fraction calculated at 71%. 3. Low risk for cardiac events. Signed by : Ronnie Perkins, Electronically Approved : 10/09/2018 11:47:42
== END | disposition home or self-care (01) ==
LOC: NM 07:12
PROVIDERS: ATTEND Internal Medicine Cardiovascular Disease
DX: R07.89 Other chest pain (principal)
CPT/HCPCS: 78452; 93017; A9500; J2785